=== PATIENT | male | born 1970 | race Caucasian/White ===

== ENCOUNTER 2025-10-06 18:13 | Inpatient (IN) | payer SELFPAY ==
[~2025-10-06] VITALS: Ht 170.2 cm; Wt 80.7 kg
[2025-10-06 18:59] LABS: BG DEOXYHEMOGLOBIN 22.5 % (0.0-5.0)
[2025-10-06] MEDS: IPRATROPIUM BROMIDE (0.02%) 0.5MG/2.5ML NEB HHN SCH (19:00)
[2025-10-06] MEDS: ALBUTEROL (0.083%) 2.5MG/3ML NEB HHN SCH (19:00)
[2025-10-06 19:01] LABS: BASOPHILS % 0.9 % (0.0-2.0); EOSINOPHILS % 10.0 % (0.0-5.0); HEMATOCRIT. 43.8 % (42.0-52.0); HEMOGLOBIN. 14.6 g/dL (14.0-18.0); LYMPHOCYTES % 19.7 % (20.0-50.0); MEAN PLATELET VOLUME 8.0 fl (7.4-10.4); MONOCYTES % 7.3 % (2.0-8.0); NEUTROPHILS % 62.1 % (40.0-76.0); PLATELET 344 x1000/uL (130-400); RED BLOOD CELL COUNT 5.07 mill/uL (4.7-6.1); RED CELL DISTRIBUTION WIDTH 13.7 % (11.6-14.6)
[2025-10-06 19:09] LABS: INR 1.0
[2025-10-06 19:11] VITALS: RESP 19
[2025-10-06] MEDS: DEXAMETHASONE 10 MG/ML VIAL IV ONE (19:11)
[2025-10-06] MEDS: CEFTRIAXONE 1GM/50ML 50 ML IV ONE (19:13)
[2025-10-06 19:18] LABS: CREATININE 1.0 mg/dL (0.6-1.3)
[2025-10-06 19:19] LABS: PROTEIN TOTAL 7.5 g/dL (6.0-8.3); UREA NITROGEN BLOOD 11 mg/dL (9-23)
[2025-10-06 19:20] LABS: ASPARTATE AMINOTRANSFERASE 29 IU/L (<34)
[2025-10-06 19:21] LABS: BILIRUBIN DIRECT 0.2 mg/dL (<=3.0); BILIRUBIN TOTAL 0.8 mg/dL (0.1-1.0)
[2025-10-06] MEDS: SODIUM CHLORIDE 0.9% (SEPSIS BOLUS) IV ONE (19:22)
[2025-10-06] MEDS: AZITHROMYCIN 500MG/250ML 250 ML IV ONE (19:28)
[2025-10-06 20:57] LABS: INFLUENZA TYPE A Presumptive Negative (Pres. Neg.)
[2025-10-06 20:58] LABS: INFLUENZA TYPE B Presumptive Negative (Pres. Neg.)
[2025-10-06 20:59] LABS: RESPIRATORY SYNCYTIAL VIRUS Not Detected (Not Detectd)
[2025-10-06 21:51] LABS: CLARITY URINE CLEAR (CLEAR); COLOR URINE YELLOW (YELLOW); GLUCOSE URINE NEGATIVE (NEGATIVE); KETONES URINE NEGATIVE (NEGATIVE); LEUKOCYTE ESTERASE URINE NEGATIVE (NEGATIVE); NITRITE URINE NEGATIVE (NEGATIVE); OCCULT BLOOD URINE NEGATIVE (NEGATIVE); PH URINE 6.5 (4.5-8.0); PROTEIN URINE NEGATIVE (NEGATIVE); SPECIFIC GRAVITY URINE 1.009 (1.005-1.030); UROBILINOGEN URINE 0.2 E.U./dL (0.2-1.0)
[2025-10-06] MEDS ORDERED: ACETAMINOPHEN 325MG TABLET PO PRN ×2 (22:30)
[2025-10-06] MEDS ORDERED: IPRATROPIUM/ALBUTEROL 0.5-3(2.5)MG/3ML NEB HHN PRN (22:30)
[2025-10-06] MEDS ORDERED: DOCUSATE SODIUM 100MG CAPSULE PO PRN (22:30)
[2025-10-06] MEDS ORDERED: ONDANSETRON HCL 4MG/2ML INJ IV PRN (22:30)
[2025-10-06] MEDS ORDERED: BUDESONIDE 0.5MG/2ML NEB HHN SCH (22:30)
[2025-10-06] MEDS ORDERED: GUAIFENESIN 200MG/10ML SUGAR FREE UDC PO PRN (22:30)
[2025-10-07] VITALS (10 sets, daily range): BP systolic 105–132; BP diastolic 63–83; PULSE 78–98; RESP 12–20; TEMP 36.3–37; O2SAT 96–100
[2025-10-07] MEDS ORDERED: MAGNESIUM 2 G PREMIX 50 ML IV NR (01:00)
[2025-10-07] MEDS: MAGNESIUM 2 G PREMIX 50 ML IV NR (05:31)
[2025-10-07] MEDS: METHYLPREDNISOLONE SOD SUCC 40MG/ML (ACT-O-VIAL) IV SCH ×2 (05:31→20:37)
[2025-10-07 06:55] LABS: BASOPHILS % 0.1 % (0.0-2.0); EOSINOPHILS % 0.0 % (0.0-5.0); HEMATOCRIT. 40.1 % (42.0-52.0); HEMOGLOBIN. 13.5 g/dL (14.0-18.0); LYMPHOCYTES % 15.2 % (20.0-50.0); MEAN PLATELET VOLUME 8.0 fl (7.4-10.4); MONOCYTES % 1.7 % (2.0-8.0); NEUTROPHILS % 83.0 % (40.0-76.0); PLATELET 271 x1000/uL (130-400); RED BLOOD CELL COUNT 4.69 mill/uL (4.7-6.1); RED CELL DISTRIBUTION WIDTH 13.5 % (11.6-14.6)
[2025-10-07 07:15] LABS: T4 FREE 1.41 ng/dL (0.89-1.76)
[2025-10-07 07:17] LABS: CREATININE 0.9 mg/dL (0.6-1.3)
[2025-10-07 07:19] LABS: TRIGLYCERIDE 41 mg/dL (0-150); UREA NITROGEN BLOOD 9 mg/dL (9-23)
[2025-10-07 07:20] LABS: LDL CHOLESTEROL 111 mg/dL (5-100)
[2025-10-07] MEDS: IPRATROPIUM/ALBUTEROL 0.5-3(2.5)MG/3ML NEB HHN SCH (08:28)
[2025-10-07] MEDS: BUDESONIDE 0.5MG/2ML NEB HHN SCH (08:28)
[2025-10-07 10:38] LABS: *AMPHETAMINES SCREEN URINE PRESUMPTIVE POSITIVE (NEGATIVE); *BARBITURATES SCREEN URINE NEGATIVE (NEGATIVE); *BENZODIAZEPINES SCREEN URINE NEGATIVE (NEGATIVE); *COCAINE SCREEN URINE NEGATIVE (NEGATIVE); CANNABINOID URINE SCREEN NEGATIVE (NEGATIVE); ECSTASY MDMA SCREEN URINE NEGATIVE (NEGATIVE); METHADONE URINE SCREEN NEGATIVE (NEGATIVE); OPIATES URINE SCREEN NEGATIVE (NEGATIVE); PHENCYCLIDINE URINE SCREEN NEGATIVE (NEGATIVE)
[2025-10-07 11:26] LABS: TROPONIN I HIGH SENSITIVITY 25 ng/L (3.0-53)
[2025-10-07] MEDS ORDERED: CEFTRIAXONE 1GM/50ML 50 ML IV SCH (18:00)
[2025-10-07] MEDS: CEFTRIAXONE 1GM/50ML 50 ML IV SCH (19:29)
[2025-10-07] MEDS: MONTELUKAST SODIUM 10MG TABLET PO SCH (19:29)
[2025-10-07] MEDS: AZITHROMYCIN 500MG/250ML 250 ML IV SCH (20:37)
[2025-10-08] VITALS: BP 135/79; PULSE 80; RESP 18; TEMP 36.3; O2SAT 98
[2025-10-08 04:00] VITALS: BP 106/77; PULSE 81; RESP 16; TEMP 36.6; O2SAT 96
[2025-10-08 06:56] LABS: HEMATOCRIT. 43.4 % (42.0-52.0); HEMOGLOBIN. 14.4 g/dL (14.0-18.0); MEAN PLATELET VOLUME 8.5 fl (7.4-10.4); PLATELET 294 x1000/uL (130-400); RED BLOOD CELL COUNT 5.02 mill/uL (4.7-6.1); RED CELL DISTRIBUTION WIDTH 13.8 % (11.6-14.6)
[2025-10-08 07:05] LABS: CREATININE 1.0 mg/dL (0.6-1.3); UREA NITROGEN BLOOD 11 mg/dL (9-23)
[2025-10-08 08:00] VITALS: BP 108/69; PULSE 94; RESP 18; TEMP 36.4; O2SAT 97
[2025-10-08] MEDS ORDERED: P20 MT (15:51)
[2025-10-08] MEDS ORDERED: ALBU18HF2 IH (15:51)
[2025-10-08 16:29] VITALS: BP 121/67; PULSE 98; RESP 18; TEMP 97.5
[2025-10-08 21:03] LABS: LYMPHOCYTES % MANUAL 9.0 % (20.0-50.0); MONOCYTES % MANUAL 4.0 % (2.0-8.0); NEUTROPHILS % MANUAL 87.0 % (45.0-75.0); PLATELET ESTIMATE NORMAL
== END 2025-10-08 17:41 | disposition home or self-care (01) | DRG 140 ==
LOC: ER 18:13 → EDBEDREQSVC 19:02 → 5EST 20:35 → EDBEDREQTM 20:56 → EDBEDREQ 20:56 → 5WST 10-07 11:30
PROVIDERS: ADMIT Internal Medicine; ATTEND Internal Medicine
PROC: 5A09357 Assistance with Respiratory Ventilation, Less than 24 Consecutive Hours, Continuous Positive Airway Pressure (ICD-10-PCS; principal; 2025-10-06)
DX: J44.1 Chronic obstructive pulmonary disease with (acute) exacerbation (principal); J45.901 Unspecified asthma with (acute) exacerbation; I10 Essential (primary) hypertension; D72.829 Elevated white blood cell count, unspecified; Z20.822 Contact with and (suspected) exposure to COVID-19; R06.03 Acute respiratory distress; R73.03 Prediabetes; F17.200 Nicotine dependence, unspecified, uncomplicated
CPT/HCPCS: 36415; 71045; 80048; 80061; 80076; 80305; 81003; 82375; 82803; 83036; 83605; 83735; 83880; 84145; 84439; 84443; 84484; 85025; 87420; 87426; 87804; 93005; 94070; 94640; 94660; 94664; 98960; 99291; A4606; J0456; J0696; J1100; J2919; J3475; J7030; J7626